=== PATIENT | male | born 1955 | race Caucasian/White ===

== ENCOUNTER 2023-11-08 10:31 | Outpatient (CLI) | payer MEDICARE, MEDICAID ==
[~2023-11-08 10:31] MED LIST: ASPI-612 PO; METO-136 PO
== END 2023-11-08 23:59 | disposition home or self-care (01) ==
LOC: RAD 10:31 → EDSTATUS 11:00 → RAD 23:59
PROVIDERS: ATTEND Internal Medicine Gastroenterology
DX: K56.699 Other intestinal obstruction unspecified as to partial versus complete obstruction (principal); Z96.642 Presence of left artificial hip joint
CPT/HCPCS: 74270

== ENCOUNTER 2024-04-23 10:28 | Day surgery (SDC) | payer MEDICARE, MEDICAID ==
[2024-04-19 10:31] LABS: BASOPHILS % (AUTO) 0.7 % (0-1); EOSINOPHILS # (AUTO) 0.1 X10'3 (0-0.9); EOSINOPHILS % (AUTO) 1.9 % (0-6); HEMATOCRIT 43.3 % (42.0-52.0); HEMOGLOBIN 14.6 g/dl (14.0-17.9); LYMPHOCYTES # (AUTO) 1.3 X10'3 (1.1-4.8); LYMPHOCYTES % (AUTO) 21.6 % (21-51); MEAN CORPUSCULAR HEMOGLOBIN 32.5 PG (27.0-31.0); MEAN CORPUSCULAR HGB CONC 33.7 g/dL (33.0-36.5); MEAN CORPUSCULAR VOLUME 96.3 FL (78-98); MEAN PLATELET VOLUME 8.7 FL (7.4-10.4); MONOCYTES # (AUTO) 0.7 X10'3 (0-0.9); MONOCYTES % (AUTO) 11.7 % (2-12); NEUTROPHILS # (AUTO) 3.9 X10'3 (1.8-7.7); NEUTROPHILS % (AUTO) 64.1 % (42-75); PLATELET COUNT 197 X10'3 (140-440); RED CELL DISTRIBUTION WIDTH 13.9 % (11.5-14.5); WHITE BLOOD COUNT 6.1 X10'3 (4.5-11.0)
[2024-04-19 10:41] LABS: ALBUMIN 3.8 G/DL (3.4-5.0); ANION GAP 4 (8-16); BLOOD UREA NITROGEN 16 MG/DL (7-18); CALCIUM 9.5 MG/DL (8.5-10.1); CHLORIDE 105 MMOL/L (99-107); CREATININE 1.07 MG/DL (0.60-1.10); GLUCOSE 83 MG/DL (70-104); POTASSIUM 4.6 MMOL/L (3.5-5.1); SODIUM 140 MMOL/L (135-145); TOTAL CARBON DIOXIDE 30.7 MMOL/L (24-32); eGFR 69 ML/MIN
[2024-04-19 10:46] LABS: APTT 28 SECONDS (22-32); INR 1.1 INR; PROTHROMBIN TIME 11.4 SECONDS (9.0-12.0)
[2024-04-23] VITALS (10 sets, daily range): BP systolic 94–139; BP diastolic 57–78; PULSE 46–76; RESP 12–16; TEMP 98.3; O2SAT 95–100
[~2024-04-23] VITALS: Ht 188 cm; Wt 94.1 kg
[2024-04-23] MEDS ORDERED: FLEC100T PO (10:51)
[2024-04-23] MEDS ORDERED: MECL-302 PO (10:51)
[2024-04-23] MEDS ORDERED: EZET10TA48 PO (10:51)
[2024-04-23] MEDS ORDERED: METO25TA6 PO (10:51)
[2024-04-23] MEDS ORDERED: APIX5TAB3 PO (10:51)
[2024-04-23] MEDS ORDERED: normal saline 1000ml 1,000 ML IV SCH (10:55)
[2024-04-23 11:27] LABS: CHOL/HDL RATIO 3.2 (0.00-4.99); CHOLESTEROL 173 MG/DL (0-200); HDL CHOLESTEROL 54 MG/DL (35-60); LDL CHOLESTEROL 104 MG/DL (50-100); TRIGLYCERIDES 75 MG/DL (20-135)
[2024-04-23] MEDS: fentaNYL/PF 50MCG/1 ML 2ML syringe IV ONE (13:03)
[2024-04-23] MEDS: MIDAZolam 1mg/ml 10ml vial IV ONE (13:03)
== END 2024-04-23 13:45 | disposition home or self-care (01) ==
LOC: SSTAY O 10:28
PROVIDERS: ATTEND Student in an Organized Health Care Education/Training Program
DX: I48.91 Unspecified atrial fibrillation (principal); I49.1 Atrial premature depolarization; E78.00 Pure hypercholesterolemia, unspecified; Z87.891 Personal history of nicotine dependence; Z79.01 Long term (current) use of anticoagulants; Z79.899 Other long term (current) drug therapy
CPT/HCPCS: 36415; 80048; 80061; 85025; 85610; 85730; 92960; 93005; J2250; J3010; J7030